=== PATIENT | female | born 1950 | race Caucasian/White ===

== ENCOUNTER → 2022-12-17 | Day surgery (SDC) | payer MEDICARE, MEDICAID ==
[~2022-12-17] VITALS: Ht 152.4 cm; Wt 74.8 kg
[~2022-12-17] MED LIST: ACETAMINOPHEN 325MG TABLET PO PRN; AMLO5TAB4 PO; ASPIRIN/SOD BICARB/CITRIC ACID 324MG TAB EFF ONE; ATROPINE SULFATE 1MG/10ML SYR IV PRN; ATROPINE SULFATE 1MG/10ML SYR ONE; BACL-141 PO; CEPH250C2 PO; CHOL200010 PO; CYAN-33 PO; EZET10TA13 PO; FENTANYL CITRATE/PF 50MCG/ML 2ML VIAL ONE; FOLI-43 PO; GABA-532 PO; HEPARIN 1000 UNITS/ML 10ML ONE; INSNOV SUBCUT; INSU100I24 SQ; IODIXANOL 320MG/ML 100 ML BOTTLE IV ONE; IPRATROPIUM/ALBUTEROL 0.5-3(2.5)MG/3ML NEB HHN NR; LIDOCAINE HCL 1% 20ML VIAL (Pyxis) INJ ONE; METO-396 PO; MIDAZOLAM HCL 2 MG/2 ML VIAL ONE; MORPHINE SULFATE 2 MG/ML CPJ (NOT FOR IM USE) IV PRN; MULT-1116 PO; NALOXONE HCL 0.4MG/ML VIAL IV PRN; ONDANSETRON HCL 4MG/2ML INJ IV PRN; ONDANSETRON HCL 4MG/2ML INJ ONE; PRAV40TA58 PO; SPIR25TA6 PO; TELM40TA7 PO; XAR15 PO; ZINC100T2 PO
[2022-12-17 06:45] LABS: BASOPHILS % 1.2 % (0.0-2.0); HEMATOCRIT. 33.4 % (36.0-48.0); HEMOGLOBIN. 11.2 g/dL (12.0-16.0); LYMPHOCYTES % 36.1 % (20.0-50.0); MEAN CORPUSCULAR HEMOGLOBIN 29.5 pg (28.0-32.0); MEAN CORPUSCULAR HGB CONC 33.4 g/dL (31.0-37.0); MEAN CORPUSCULAR VOLUME 88.2 fL (81.0-99.0); MEAN PLATELET VOLUME 8.3 fl (7.4-10.4); MONOCYTES % 7.5 % (2.0-8.0); NEUTROPHILS % 51.2 % (40.0-76.0); PLATELET 188 x1000/uL (130-400); RED BLOOD CELL COUNT 3.79 mill/uL (4.2-5.4); RED CELL DISTRIBUTION WIDTH 15.8 % (11.6-14.6); WHITE BLOOD COUNT 5.7 x1000/uL (4.5-11.0)
[2022-12-17 06:50] LABS: INR 1.1; PARTIAL THROMBOPLASTIN TIME 25.9 sec (23.4-31.0); PROTHROMBIN TIME 11.5 sec (9.6-11.0)
[2022-12-17 07:27] LABS: CHLORIDE 114 mEq/L (98-107); INDEX HEMOLYSI 1 (1-3); INDEX ICTERIC 1 (1-4); INDEX LIPEMIC 1 (1-3); POTASSIUM 4.1 mEq/L (3.5-5.1); SODIUM 138 mEq/L (136-145)
[2022-12-17 07:35] LABS: CALCIUM 8.4 mg/dL (8.5-10.1); CARBON DIOXIDE 24 mEq/L (21-32); CREATININE 0.6 mg/dL (0.6-1.3); GLUCOSE 256 mg/dL (70-105); UREA NITROGEN BLOOD 30 mg/dL (7-21)
== END | disposition home or self-care (01) ==
LOC: CCL 06:09 → EDBD 06:09
PROVIDERS: ATTEND Specialist
DX: I25.10 Atherosclerotic heart disease of native coronary artery without angina pectoris (principal); I10 Essential (primary) hypertension; I48.20 Chronic atrial fibrillation, unspecified; E78.5 Hyperlipidemia, unspecified; E11.9 Type 2 diabetes mellitus without complications; Z79.4 Long term (current) use of insulin; Z79.899 Other long term (current) drug therapy; Z98.890 Other specified postprocedural states
CPT/HCPCS: 80048; 82962; 85025; 85610; 85730; 36415; 93458; J3010; Q9967; J1644 ×2; J3490; J2250; Z7610 ×7; 36600; 82375; 82805; 99152; 99153; J0461; J2405; G0500